=== PATIENT | male | born 1985 | race Caucasian/White ===

== ENCOUNTER 2016-11-17 16:37 | Emergency (ER) | payer OTHER ==
[2016-11-17 16:43] VITALS: BP 123/68; PULSE 121; TEMP 98.3; BMI 33.0
[2016-11-17] MEDS ORDERED: IBUPROFEN 600 MG TABLET (FP) PO ONE (17:21)
[2016-11-17] MEDS ORDERED: IBUPROFEN 400 MG TABLET (FP) PO ONE (17:23)
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
== END 2016-11-17 17:42 | disposition home or self-care (01) ==
LOC: JERFT 16:37
DX: S99.821A Other specified injuries of right foot, initial encounter (principal); Y35.811A Legal intervention involving manhandling, law enforcement official injured, initial encounter; W18.39XA Other fall on same level, initial encounter; Y93.89 Activity, other specified; Y92.89 Other specified places as the place of occurrence of the external cause; Y99.0 Civilian activity done for income or pay
CPT/HCPCS: 73630-TC-RT; 99281-25

== ENCOUNTER 2017-10-18 06:11 | Emergency (ER) | payer OTHER ==
[2017-10-18 06:24] VITALS: BP 101/65; PULSE 75; TEMP 97.5; BMI 31.0
[2017-10-18] MEDS ORDERED: IBUPROFEN 400 MG TABLET (FP) PO ONE (06:32)
--- NOTE | 2017-10-18 06:37 | PDOC ---
History of Present Illness - General Chief Complaint: Injury Stated Complaint: RT ANKLE PAIN Time Seen by Provider: 10/18/17 06:25 History Source: Patient Exam Limitations: No Limitations - History of Present Illness Initial Comments: 10/18/17 06:32 This is a 32-year-old male with multiple right ankle and foot surgeries who presents emergency Department with right ankle pain status post inversion injury. Patient states she was walking on uneven pavement when his right foot rolled inward. Patient was immediately able to stand up and continue ambulating on the injury. Past History - Past Medical History Allergies/Adverse Reactions: Allergies Allergy/AdvReac Type Severity Reaction Status Date / Time No Known Allergies Allergy Verified 10/18/17 06:23 Home Medications: Ambulatory Orders NK [No Known Home Medication] 11/17/16 Anemia: No Asthma: No Cancer: No Cardiac Disorders: No - Surgical History Abdominal Surgery: No Appendectomy: No Cardiac Surgery: No Cholecystectomy: No - Immunization History Td Vaccination: Yes Immunization Up to Date: Yes () - Suicide/Smoking/Psychosocial Hx Smoking Status: Yes Smoking History: Never smoked Years of Tobacco Use: 0 Have you smoked in the past 12 months: No Number of Cigarettes Smoked Daily: 0 Cigars Per Day: 0 Information on smoking cessation initiated: No 'Breaking Loose' booklet given: 10/28/13 Hx Alcohol Use: No Drug/Substance Use Hx: No Substance Use Type: None Review of Systems - Review of Systems Able to Perform ROS?: Yes Is the patient limited Korean proficient: No Constitutional: No: Symptoms Reported HEENTM: No: Symptoms Reported Respiratory: No: Symptoms reported Cardiac (ROS): No: Symptoms Reported ABD/GI: No: Symptoms Reported : No: Symptoms Reported Musculoskeletal: Yes: See HPI Integumentary: No: Symptoms Reported Neurological: No: Symptoms reported Endocrine: No: Symptoms Reported Hematologic/Lymphatic: No: Symptoms Reported *Physical Exam - Vital Signs Last Vital Signs Temp Pulse Resp BP Pulse Ox 97.5 F L 75 20 101/65 100 10/18/17 06:23 10/18/17 06:23 10/18/17 06:23 10/18/17 06:23 10/18/17 06:23 - Physical Exam Vascular Pulses: Dorsalis-Pedis (R): 2+, Doralis-Pedis (L): 2+ Musculoskeletal: positive: Normal Inspection Extremity: positive: Normal Inspection, Normal Range of Motion, Tender ( immediately inferior to the medial malleolus of the right ankle). negative: Swelling, Erythema, Inflammation Integumentary: positive: Normal Color, Dry, Warm Neurologic: positive: Alert, Normal Response. negative: Numbness Medical Decision Making - Medical Decision Making 10/18/17 06:34 A/P: 32-year-old male with right ankle injury status post inversion of the foot No swelling is present 2+ DP pulses present bilaterally Tenderness immediately inferior to the medial malleolus of the right ankle No tenderness to the navicular or base of fifth metatarsalNo calcaneal tenderness Patient is able to around the ankle Based on the [place] ankle rules imaging can be deferred at this time. I will discharge the patient home with Juan wrap and instructions to see an orthopedist if symptoms aren't resolving within the next 7 days. Patient verbalizes understanding of discharge instructions. *DC/Admit/Observation/Transfer Diagnosis at time of Disposition: Ankle sprain Qualifiers: Encounter type: initial encounter Involved ligament of ankle: unspecified ligament Laterality: right Qualified Code(s): S93.401A - Sprain of unspecified ligament of right ankle, initial encounter - Discharge Dispostion Disposition: HOME Condition at time of disposition: Stable Decision to Admit order: No - Referrals Referrals: Marquise Giles MD [Staff Physician] - - Patient Instructions Additional Instructions: Take Tylenol or Motrin as needed for pain. Follow manufacturers instructions for appropriate dosage. Try not to walk or bear weight on your left ankle as much as possible for the next 3 days. Apply ice for 20 minutes and removed for at least 20 minutes before reapplying the ice. Keep Juan wrap on your ankle as much as possible to help decrease some of the swelling control pain. Whenever possible keep her foot elevated to decrease swelling to your ankle. You've been given the number for an orthopedist. If symptoms do not resolve within the next 7 days call the orthopedist for further evaluation. Return to emergency department for discoloration of the foot, numbness or tingling to the foot, worsening pain, or any other concerns. Thank you very much for choosing us to provide your emergent healthcare needs. - Post Discharge Activity
[2017-10-18] MEDS ORDERED: IBUPROFEN 600 MG TABLET (FP) PO ONE (06:40)
== END 2017-10-18 07:40 | disposition home or self-care (01) ==
LOC: JER 06:11
DX: S93.401A Sprain of unspecified ligament of right ankle, initial encounter (principal); X58.XXXA Exposure to other specified factors, initial encounter; Y93.89 Activity, other specified; Y92.9 Unspecified place or not applicable; Y99.0 Civilian activity done for income or pay
CPT/HCPCS: 99282-25